=== PATIENT | male | born 1970 | race Caucasian/White ===

== ENCOUNTER 2016-09-29 20:53 | Emergency (ER) | payer SELFPAY ==
[~2016-09-29] VITALS: Ht 180.3 cm; Wt 90.0 kg
[~2016-09-29 20:53] MED LIST: ACAMPROSATE CA333 MG PO; BACTRIM DS1 TAB OR; CLONIDINE0.1 MG PO; LIBRIUM25 M1 PO; LISINOP/HCTZ1 TA2 PO; LISINOPRIL20 M1 PO; LORTAB 5/3255 MG PO; ONDANSETRON4 MG PO; PREVACID30 M2 PO; TAB-A-VITE W/1 COMBO PO; ZITHROMAX250 MG OR
[2016-09-29 21:46] LABS: HEMATOCRIT 46.5 % (39.0-50.0); HEMOGLOBIN 16.1 g/dl (14.0-18.0); IMMATURE GRANULOCYTES 0.8 % (0.0-1.0); MEAN CELL VOLUME 96.9 fL CALC (80.0-100.0); MEAN CORPUSCULAR HGB 33.5 pG CALC (26.0-32.0); MEAN CORPUSCULAR HGB CONC 34.6 g/L CALC (32.0-36.0); NEUT# 2.6 thou/uL (1.82-7.42); RED BLOOD COUNT 4.8 mill/uL (4.70-6.10); RED CELL DISTRI WIDTH 14.5 % (11.5-15.5)
[2016-09-29 22:02] LABS: PROTHROMBIN TIME 11.2 SECONDS (9.0-12.5)
[2016-09-29 22:04] LABS: ALBUMIN 4.4 g/dL (3.2-5.0); ALKALINE PHOSPHATASE 110 u/l (38-126); ANION GAP 21 (6-22 (CALC)); BILIRUBIN, TOTAL 0.8 mg/dL (0.0-1.4); BUN 11 mg/dL (9-20); BUN/CREATININE RATIO 16 (12-20 (CALC)); CALCIUM 9.2 mg/dL (8.4-10.2); CARBON DIOXIDE 21 mmol/l (22-30); CHLORIDE 106 mmol/l (95-108); CREATININE 0.7 mg/dL (0.7-1.3); GFR > 60 ML/MIN (>=60 (CALC)); GFR FOR AFR.AMER. > 60 ML/MIN (>=60 (CALC)); GLUCOSE 86 mg/dL (75-110); POTASSIUM 3.8 mmol/l (3.5-5.1); SGOT/AST 196 u/l (17-59); SGPT/ALT 150 u/l (21-72); SODIUM 145 mmol/l (137-146); TOTAL PROTEIN 8.2 g/dL (6.3-8.2)
[2016-09-29 22:05] VITALS: BP 164/88
[2016-09-29 22:08] LABS: ETHYL ALCOHOL 285 mg/dl (0-30)
[2016-09-29 22:16] LABS: MYOGLOBIN 30 ng/mL (0 - 121)
[2016-09-29] MEDS ORDERED: GENTAMICIN15 ML/BTL OD (22:45)
== END 2016-09-29 22:43 | disposition left against medical advice (07) | DRG 894 ==
LOC: ED 20:53
PROVIDERS: Emergency Medicine
DX: F10.10 Alcohol abuse, uncomplicated (principal); I10 Essential (primary) hypertension; H53.9 Unspecified visual disturbance; F41.9 Anxiety disorder, unspecified; F17.210 Nicotine dependence, cigarettes, uncomplicated; Z91.19 Patient's noncompliance with other medical treatment and regimen

== ENCOUNTER 2018-01-06 12:58 | Observation (INO) | payer OTHER ==
[~2018-01-06] VITALS: Ht 177.8 cm; Wt 94.0 kg
[~2018-01-06 12:58] MED LIST changes: +GENTAMICIN15 ML/BTL OD
[2018-01-06 13:31] LABS: IMMATURE GRANULOCYTES 0.6 % (0.0-5.0); MEAN CELL VOLUME 97.3 fL CALC (80.0-100.0); MEAN CORPUSCULAR HGB 34.4 pG CALC (26.0-32.0); MEAN CORPUSCULAR HGB CONC 35.4 g/L CALC (32.0-36.0); NEUT# 3.87 thou/uL (1.82-7.42); RED BLOOD COUNT 4.01 mill/uL (4.70-6.10); RED CELL DISTRI WIDTH 14.7 % (11.5-15.5)
[2018-01-06 13:55] LABS: ALBUMIN 4.3 g/dL (3.2-5.0); ALKALINE PHOSPHATASE 140 u/l (38-126); ANION GAP 17 (6-22 (CALC)); BILIRUBIN, TOTAL 2.5 mg/dL (0.0-1.4); BUN 9 mg/dL (9-20); BUN/CREATININE RATIO 14 (12-20 (CALC)); CARBON DIOXIDE 26 mmol/l (22-30); CHLORIDE 99 mmol/l (95-108); CREATININE 0.6 mg/dL (0.7-1.3); ETHYL ALCOHOL 0 mg/dl (0-30); GFR > 60 ML/MIN (>=60 (CALC)); GFR FOR AFR.AMER. > 60 ML/MIN (>=60 (CALC)); POTASSIUM 3.9 mmol/l (3.5-5.1); SGOT/AST 288 u/l (17-59); SGPT/ALT 202 u/l (21-72); SODIUM 138 mmol/l (137-146); TOTAL PROTEIN 7.3 g/dL (6.3-8.2)
[2018-01-06 14:11] LABS: HEMOGLOBIN 13.8 g/dl (14.0-18.0)
[2018-01-06 16:30] VITALS: BP 168/106
[2018-01-06 17:03] VITALS: BP 168/106
[2018-01-06 19:00] VITALS: BP 157/95
[2018-01-07 00:06] VITALS: BP 165/95
[2018-01-07 04:00] VITALS: BP 165/94
[2018-01-07 07:34] VITALS: BP 155/101
[2018-01-07 11:00] VITALS: BP 162/90
[2018-01-07 11:59] LABS: COCAINE NEGATIVE (NEGATIVE); METHADONE NEGATIVE (NEGATIVE); TETRAHYDROCANNABIONOL NEGATIVE (NEGATIVE)
[2018-01-07 12:00] LABS: BARBITURATES NEGATIVE (NEGATIVE); OXCYCODONE NEGATIVE (NEGATIVE); TRICYLIC ANTIDEPRESSANTS NEGATIVE (NEGATIVE)
[2018-01-07 16:54] VITALS: BP 160/100
[2018-01-07 19:16] VITALS: BP 142/91
[2018-01-08] VITALS (7 sets, daily range): BP systolic 115–159; BP diastolic 62–104
[2018-01-09 00:45] VITALS: BP 174/98
[2018-01-09 04:00] VITALS: BP 158/98
[2018-01-09 08:36] VITALS: BP 129/81
[2018-01-09 11:25] VITALS: BP 135/81
[2018-01-09] MEDS ORDERED: LOSARTAN POT50 MG PO (13:17)
== END 2018-01-09 14:12 | DRG 897 ==
LOC: ED 12:58 → ED-I 13:20 → ED 13:20 → ED-I 14:55 → ED 15:05 → MS2 15:06
PROVIDERS: Family Medicine; ADMIT Internal Medicine; ATTEND Internal Medicine
DX: F10.239 Alcohol dependence with withdrawal, unspecified (principal); I10 Essential (primary) hypertension; R74.0 Nonspecific elevation of levels of transaminase and lactic acid dehydrogenase [LDH]; D53.9 Nutritional anemia, unspecified; F17.210 Nicotine dependence, cigarettes, uncomplicated; Z91.14 Patient's other noncompliance with medication regimen
CPT/HCPCS: G0378; J1650; J2060

== ENCOUNTER 2020-03-10 04:22 | Emergency (ER) | payer SELFPAY ==
[~2020-03-10] VITALS: Ht 177.8 cm; Wt 90.0 kg
[~2020-03-10 04:22] MED LIST changes: +LOSARTAN POT50 MG PO
[2020-03-10] MEDS ORDERED: GENTAMICIN SULF5 ML OD (04:53)
[2020-03-10] MEDS ORDERED: ACCURETI1 PO (04:53)
[2020-03-10 05:13] VITALS: BP 166/96
== END 2020-03-10 05:13 | disposition home or self-care (01) | DRG 125 ==
LOC: ED 04:22
DX: H18.821 Corneal disorder due to contact lens, right eye (principal); I10 Essential (primary) hypertension; F17.200 Nicotine dependence, unspecified, uncomplicated

== ENCOUNTER 2021-11-17 19:49 | Emergency (ER) | payer SELFPAY ==
[~2021-11-17] VITALS: Ht 177.8 cm; Wt 118.0 kg
[2021-11-17] VITALS (15 sets, daily range): BP systolic 96–266; BP diastolic 62–153
[~2021-11-17 19:49] MED LIST changes: +ACCURETI1 PO; +GENTAMICIN SULF5 ML OD
[2021-11-17 20:38] LABS: IMMATURE GRANULOCYTES 0.6 % (0.0-5.0); MEAN CELL VOLUME 102.2 fL CALC (80.0-100.0); MEAN CORPUSCULAR HGB 33.7 pG CALC (26.0-32.0); NEUT# 5.49 thou/uL (1.82-7.42); RED BLOOD COUNT 5.43 mill/uL (4.70-6.10); RED CELL DISTRI WIDTH 13.2 % (11.5-15.5)
[2021-11-17 20:39] LABS: HEMATOCRIT 55.5 % (39.0-50.0); HEMOGLOBIN 18.3 g/dl (14.0-18.0)
[2021-11-17 20:56] LABS: ALBUMIN 4.9 g/dL (3.2-5.0); ALKALINE PHOSPHATASE 186 u/l (38-126); BILIRUBIN, TOTAL 3.1 mg/dL (0.0-1.4); CARBON DIOXIDE 24 mmol/l (22-30); CREATININE 1.1 mg/dL (0.7-1.3); ETHYL ALCOHOL 0 mg/dl (0-30); GFR FOR AFR.AMER. > 60 ML/MIN (>=60 (CALC)); GFR OTHER RACES > 60 ML/MIN (>=60 (CALC)); SGOT/AST 411 u/l (17-59); SODIUM 140 mmol/l (137-146)
[2021-11-17 21:06] LABS: ANION GAP 32 (6-22 (CALC)); CHLORIDE 86 mmol/l (95-108); TOTAL PROTEIN 8.9 g/dL (6.3-8.2)
[2021-11-17 21:07] LABS: BUN 2 mg/dL (9-20); BUN/CREATININE RATIO 2 (12-20 (CALC)); MYOGLOBIN 255 ng/mL (0 - 121)
[2021-11-17 21:12] LABS: URINE BLOOD DIPSTICK LARGE (NEGATIVE); URINE COLOR YELLOW; URINE GLUCOSE - DIPSTICK 100 mg/dL (NEGATIVE); URINE KETONE NEGATIVE (NEGATIVE); URINE LEUK ESTERASE NEGATIVE (NEGATIVE); URINE PH 7.5 (4.5-8.0); URINE PROTEIN - DIPSTICK >=300 mg/dL (NEG-TRACE); URINE SPECIFIC GRAVITY 1.025; URINE UROBILINOGEN - DIPSTICK 0.2 E.U./dL (0.2)
[2021-11-17 21:18] LABS: URINE BILIRUBIN - DIPSTICK SMALL (NEGATIVE); URINE NITRITE - DIPSTICK NEGATIVE (Negative)
[2021-11-17 21:19] LABS: URINE WBC 0-2 WBC/hpf (0-5)
[2021-11-17 21:57] LABS: POTASSIUM 2.1 mmol/l (3.5-5.1)
[2021-11-18 00:02] VITALS: BP 106/65
--- NOTE | 2021-11-21 11:24 | NUR ---
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
== END 2021-11-17 23:18 | disposition short-term general hospital (02) | DRG 896 ==
LOC: ED 19:49
PROVIDERS: Family Medicine
PROC: 0BH17EZ Insertion of Endotracheal Airway into Trachea, Via Natural or Artificial Opening (ICD-10-PCS; principal; 2021-11-17)
PROC: 5A1935Z Respiratory Ventilation, Less than 24 Consecutive Hours (ICD-10-PCS; 2021-11-17)
PROC: 0T9B70Z Drainage of Bladder with Drainage Device, Via Natural or Artificial Opening (ICD-10-PCS; 2021-11-17)
DX: F10.139 Alcohol abuse with withdrawal, unspecified (principal); J96.90 Respiratory failure, unspecified, unspecified whether with hypoxia or hypercapnia; G40.89 Other seizures; K70.10 Alcoholic hepatitis without ascites; I10 Essential (primary) hypertension; Z20.822 Contact with and (suspected) exposure to COVID-19
CPT/HCPCS: J1953; J2060

== ENCOUNTER 2022-07-10 21:50 | Emergency (ER) | payer SELFPAY ==
[~2022-07-10] VITALS: Ht 177.8 cm; Wt 89.0 kg
[2022-07-10 22:15] VITALS: BP 143/96
[2022-07-10 22:37] VITALS: BP 131/70
[2022-07-10 22:44] LABS: BASO% 1.3 % (0-3); EOS% 1.5 % (0-8); HEMATOCRIT 43.1 % (39.0-50.0); HEMOGLOBIN 14.7 g/dl (14.0-18.0); IMMATURE GRANULOCYTES 0.2 % (0.0-5.0); LYMPH% 63.5 % (15-41); MEAN CELL VOLUME 95.8 fL CALC (80.0-100.0); MEAN CORPUSCULAR HGB 32.7 pG CALC (26.0-32.0); MEAN CORPUSCULAR HGB CONC 34.1 g/dL CAL (32.0-36.0); MONO% 8.8 % (2-13); NEUT# 1.19 thou/uL (1.82-7.42); NEUT% 24.7 % (42-76); RED BLOOD COUNT 4.5 mill/uL (4.70-6.10); RED CELL DISTRI WIDTH 12.3 % (11.5-15.5)
[2022-07-10 22:45] LABS: URINE BILIRUBIN - DIPSTICK NEGATIVE (NEGATIVE); URINE BLOOD DIPSTICK TRACE-INTACT (NEGATIVE); URINE COLOR YELLOW; URINE GLUCOSE - DIPSTICK NEGATIVE (NEGATIVE); URINE KETONE NEGATIVE (NEGATIVE); URINE LEUK ESTERASE NEGATIVE (NEGATIVE); URINE NITRITE - DIPSTICK NEGATIVE (Negative); URINE PH 5.5 (4.5-8.0); URINE PROTEIN - DIPSTICK NEGATIVE (NEG-TRACE); URINE SPECIFIC GRAVITY <=1.005; URINE UROBILINOGEN - DIPSTICK 0.2 E.U./dL (0.2)
[2022-07-10 23:10] LABS: ALBUMIN 4.6 g/dL (3.2-5.0); ALKALINE PHOSPHATASE 158 u/l (38-126); BUN 3 mg/dL (9-20); BUN/CREATININE RATIO 5 (12-20 (CALC)); CARBON DIOXIDE 23 mmol/l (22-30); CREATININE 0.6 mg/dL (0.7-1.3); GFR FOR AFR.AMER. > 60 ML/MIN (>=60 (CALC)); GFR OTHER RACES > 60 ML/MIN (>=60 (CALC)); MAGNESIUM 1.8 mg/dL (1.6-2.3); SGOT/AST 227 u/l (17-59); SODIUM 135 mmol/l (137-146); TOTAL PROTEIN 7.7 g/dL (6.3-8.2)
[2022-07-10 23:18] LABS: ANION GAP 17 (6-22 (CALC)); BILIRUBIN, TOTAL 0.9 mg/dL (0.2-1.3); CHLORIDE 99 mmol/l (95-108); POTASSIUM 3.6 mmol/l (3.5-5.1)
[2022-07-11 00:18] LABS: ETHYL ALCOHOL 422 mg/dl (0-30)
[2022-07-11 01:21] VITALS: BP 116/78
[2022-07-11 01:29] VITALS: BP 116/78
== END 2022-07-11 01:38 | disposition home or self-care (01) | DRG 897 ==
LOC: ED 21:50
PROVIDERS: Family Medicine
DX: F10.129 Alcohol abuse with intoxication, unspecified (principal); I10 Essential (primary) hypertension; Y90.8 Blood alcohol level of 240 mg/100 ml or more